=== PATIENT | male | born 1955 | race Caucasian/White ===

== ENCOUNTER → 2017-04-11 | Outpatient (CLI) | payer BC ==
--- NOTE | 2017-04-11 15:36 | KCIC ---
PQRS Compliance Statement: One or more of the following individualized dose reduction techniques were utilized for this examination: 1. Automated exposure control 2. Adjustment of the mA and/or kV according to patient size 3. Use of iterative reconstruction technique CT MAXILLOFACIAL WO CONTRAST Clinical Indication: Chronic pansinusitis. Cough, congestion, drainage, previous surgery 3-4 years ago. Comparison: CT paranasal sinuses without contrast February 20, 2015. TECHNIQUE: Helical CT imaging of the paranasal sinuses is performed using [employer] protocol from the upper mandible through the skull vertex without IV contrast. Findings: Frontal sinuses are clear. Moderate mucosal thickening of the bilateral ethmoid sinuses. There is mild to moderate mucosal thickening of the bilateral sphenoid sinuses. Moderate mucosal thickening in the bilateral maxillary sinuses. There is an air-fluid level in the left maxillary sinus. Question right maxillary antrostomy, correlate to prior sinus surgery. The right and left middle and inferior meatus are patent. The nasal septum is midline. The left infundibular canal and hiatus semilunaris of the ostiomeatal complex are opacified. Mastoid air cells are aerated. Visualized brain without midline shift or mass effect, not protocoled for its evaluation. The globes and orbits are intact. There is beam hardening artifact from dental amalgam, limiting evaluation at this level. IMPRESSION: There is diffuse paranasal sinus disease with acute and chronic components, less severe than on prior study. Electronically signed by: Alfonso Saunders MD (04/11/2017 3:33 PM) [id number]
== END | disposition home or self-care (01) ==
LOC: KCIC CT 14:47
PROVIDERS: ATTEND Otolaryngology
DX: J32.4 Chronic pansinusitis (principal); R05 Cough
CPT/HCPCS: 70486

== ENCOUNTER → 2017-05-30 | Outpatient (CLI) | payer BC ==
--- NOTE | 2017-05-30 16:17 | KCIC ---
KNEE BILAT 3V Indication: Bilateral knee pain and tightness. . Comparison: No comparison is available. FINDINGS: Narrowing of the medial joint compartment of both knees. Minimal spurring. There may be a small right pleural effusion. No evidence of an acute fracture or dislocation. IMPRESSION: Mild degenerative changes. Electronically signed by: Navdeep Gunn MD (05/30/2017 4:14 PM) [id number]
== END | disposition home or self-care (01) ==
LOC: KCIC 15:26
PROVIDERS: ATTEND Orthopaedic Surgery Sports Medicine
DX: M25.562 Pain in left knee (principal)
CPT/HCPCS: 73562

== ENCOUNTER → 2018-06-18 | Outpatient (CLI) | payer BC ==
--- NOTE | 2018-06-18 17:19 | KCIC ---
CT study of the maxillofacial bones without contrast Clinical indications: Chronic pansinusitis. 2 previous surgeries for sinusitis. Difficulty breathing. COMPARISON: April 11, 2017. TECHNIQUE: Noncontrast helical CT scanning of the paranasal sinuses was performed. Multiplanar 2-D reconstructions were generated. PQRS compliance Statement One or more of the following individualized dose reduction techniques were utilized for this study: 1. Automated exposure control 2. Adjustment of the mA and/or kV according to patient size 3. Use of iterative reconstruction technique. FINDINGS: There is chronic nodular mucosal thickening of both maxillary sinuses which has not improved and is otherwise unchanged. Small air-fluid level is seen within the right maxillary sinus. There are postoperative changes of both maxillary sinuses. There are postoperative changes of both ethmoid sinuses. There is mild to moderate mucosal thickening of the surgical bed of both ethmoid sinuses. This has progressed. In addition, chronic opacification of the posterior right ethmoid sinus is seen which is stable. There is circumferential moderate mucosal thickening of both sphenoid sinuses which has progressed. Postoperative changes of anterior wall of both sphenoid sinuses is seen. There is mild mucosal thickening of the floor of both frontal sinuses which has progressed since the previous study. There is mild mucosal thickening of the middle and inferior turbinates bilaterally. There has been partial surgical resection of the anterior aspect of the middle terminates bilaterally. No soft tissue mass or prominent polyp is seen within the nasal passageway. No lytic process is seen. IMPRESSION: Chronic pansinusitis. There has been progression within the ethmoid and sphenoid and frontal sinuses since the previous study. Small air-fluid level is present within the right maxillary sinus consistent with acute right maxillary sinusitis. Electronically signed by: Moises Roca MD (06/18/2018 5:16 PM) [place] [id number]
== END | disposition home or self-care (01) ==
LOC: KCIC CT 15:10
PROVIDERS: ATTEND Otolaryngology
DX: J32.4 Chronic pansinusitis (principal)
CPT/HCPCS: 70486